=== PATIENT | female | born 1940 | race Asian ===

== ENCOUNTER 2016-06-15 10:45 | Emergency (ER) | payer MEDICARE, OTHER ==
[~2016-06-15] VITALS: Ht 157.5 cm; Wt 72.5 kg
[~2016-06-15 10:45] MED LIST: NOCURR
[2016-06-15 11:59] LABS: INFLUENZA TYPE B POSITIVE FOR TYPE B (NEGATIVE)
[2016-06-15 12:15] VITALS: BP 124/63
[2016-06-15] MEDS ORDERED: OSELTAMIVIR PHOSPHATE 75 MG CAPSULE PO ONE (12:15)
[2016-06-15] MEDS ORDERED: ACETAMINOPHEN 325 MG TABLET PO ONE (12:45)
== END 2016-06-15 13:02 | disposition home or self-care (01) ==
LOC: EMS 10:48
DX: J10.1 Influenza due to other identified influenza virus with other respiratory manifestations (principal)
CPT/HCPCS: 71020; 87804; 99285

== ENCOUNTER 2016-09-22 09:28 | Emergency (ER) | payer MEDICARE, OTHER ==
[~2016-09-22] VITALS: Ht 152.4 cm; Wt 68.2 kg
[2016-09-22] MEDS ORDERED: TRAZ-144 PO (09:58)
[2016-09-22] MEDS ORDERED: METF500T4 PO (09:58)
[2016-09-22] MEDS ORDERED: LISI-662 PO (09:58)
[2016-09-22 10:02] LABS: GLUCOSE,POINT OF CARE 128 MG/DL (70-110)
[2016-09-22 11:58] VITALS: BP 125/71
== END 2016-09-22 13:12 | disposition home or self-care (01) ==
LOC: EMS 09:30
DX: S30.1XXA Contusion of abdominal wall, initial encounter (principal); E11.9 Type 2 diabetes mellitus without complications; I10 Essential (primary) hypertension; X58.XXXA Exposure to other specified factors, initial encounter; Y93.89 Activity, other specified; Y92.89 Other specified places as the place of occurrence of the external cause; Y99.8 Other external cause status
CPT/HCPCS: 82962; 99282